=== PATIENT | female | born 1995 ===

== ENCOUNTER → 2021-04-16 | Outpatient (CLI) | payer SELFPAY ==
[2021-04-16 13:14] LABS: Candida species (DNA Probe) Negative (NEGATIVE); G. vaginalis (DNA Probe) Negative (NEGATIVE); T. vaginalis (DNA Probe) Negative (NEGATIVE)
[2021-04-17 07:07] LABS: HBSAG SCREEN Negative (Negative); HEP B CORE AB, TOT Negative (Negative); HEP C VIRUS AB <0.1 (0.0-0.9); HIV SCREEN 4TH GENERATION WRFX Non Reactive (Non Reactive)
[2021-04-18 01:08] LABS: CHLAMYDIA TRACHOMATIS, NAA Negative (Negative)
== END | disposition home or self-care (01) ==
LOC: LAB 10:40 → LAB SHORT 10:40
PROVIDERS: Physician Assistant
DX: N76.0 Acute vaginitis (principal); N72 Inflammatory disease of cervix uteri; R30.0 Dysuria; N89.8 Other specified noninflammatory disorders of vagina
CPT/HCPCS: 86592; 86704; 86708; 86803; 87077; 87086; 87186; 87340; 87389; 87480; 87491; 87510; 87591; 87660